=== PATIENT | male | born 1985 | race Caucasian/White ===

== ENCOUNTER 2019-08-04 10:39 | Outpatient (CLI) | payer OTHER ==
[2019-08-04] MEDS ORDERED: GADOBUTROL 7.5 MMOL/7.5 ML VIAL IVP ONE (11:32)
[2019-08-04] MEDS ORDERED: GADOBUTROL 7.5 MMOL/7.5 ML VIAL ONE (11:33)
--- NOTE | 2019-08-04 12:57 | MRI Report ---
Reason: OTHER SPECIFIED JOINT DISORDERS, RT WRIST Procedure Date: 08/04/2019 Accession Number: [id number] / [id number] Procedure: MRI - Wrist RT W/WO CPT Code: FULL RESULT: EXAM: RIGHT WRIST MRI WITHOUT AND WITH CONTRAST EXAM DATE: 08/04/2019 11:54 AM. CLINICAL HISTORY: Other specified joint disorders, right wrist. Cyst. COMPARISON: None. TECHNIQUE: Multiplanar, multisequence T1-weighted and fluid-sensitive sequences of the wrist before and after administration of intravenous contrast. IV contrast: . Other: None. FINDINGS: Bones: No fracture or bone lesion. Benign carpal cyst in the trapezoid. Minimal bone marrow edema and enhancement at the ulnar aspect of the lunate proximally. Cartilage: The articular cartilage is unremarkable. Ill-defined fluid sensitive isointense to hyperintense signal and distortion in the substance of the dorsal fibers ulnar insertion triangular fibrocartilage complex. Ligaments: Distortion and likely full-thickness tear membranous portion and volar band scapholunate ligament. Mild thickening and subtle distortion at the dorsal band. Minimal thickening and edema at the dorsal and volar band lunotriquetral ligament. Diffuse edema and distortion with attenuated appearance at the volar long radiolunate ligament. Tendons: Minimal thickening at the extensor carpi radialis longus tendon. Likely normal variant separation of some of the fibers at the ulnar aspect of the tendon distally extending to the insertion. 0.3 x 0.3 x 0.7 cm, AP by transverse by longitudinal focus of fluid at the radial aspect extensor carpi radialis brevis tendon at the level of the distal radius articular surface. Mild thickening and subtle fluid sensitive isointense intrasubstance signal at the extensor carpi ulnaris tendon distally. Musculature: No edema or fatty atrophy. Other: The contents of the carpal tunnel, including the median nerve, are unremarkable. Guyons canal is unremarkable. Minimal joint fluid at the distal radial ulnar and radiocarpal joints. The subcutaneous tissues are unremarkable. No abscess or cellulitis. IMPRESSION: 1. Trace tenosynovitis versus 0.7 cm ganglion at the extensor carpi radialis brevis tendon. 2. Minimal tendinopathy extensor carpi radialis longus tendon with likely normal variant separation of the fibers distally. 3. Mild extensor carpi ulnaris tendinopathy with possible subtle intrasubstance tear. 4. Likely full-thickness tear membranous portion and volar band scapholunate ligament. Mild sprain dorsal band. 5. High-grade partial-thickness tear volar long radiolunate ligament. 6. Mild sprain dorsal and volar bands lunotriquetral ligament. 7. Subtle bone marrow edema at the proximal lunate, suggestive of ulnar abutment. 8. Intrasubstance degeneration and likely partial thickness intrasubstance tear ulnar insertion triangular fibrocartilage complex. RADIA
== END 2019-08-04 10:40 | disposition home or self-care (01) ==
LOC: DI 10:39
PROVIDERS: ATTEND Orthopaedic Surgery
DX: S63.591A Other specified sprain of right wrist, initial encounter (principal); M24.131 Other articular cartilage disorders, right wrist; M67.931 Unspecified disorder of synovium and tendon, right forearm; R60.0 Localized edema
CPT/HCPCS: 73223; A9585

== ENCOUNTER 2019-10-01 12:27 | Day surgery (SDC) | payer OTHER ==
[2019-10-01] MEDS ORDERED: PROPOFOL 200 MG/20 ML VIAL IVP ONE (12:28)
[2019-10-01] MEDS ORDERED: KETOROLAC 30 MG/ML VIAL IVP ONE (12:28)
[2019-10-01] MEDS ORDERED: MIDAZOLAM 2 MG/2 ML VIAL IVP ONE (12:28)
[2019-10-01] MEDS ORDERED: DEXAMETHASONE 4 MG/ML VIAL IVP ONE (12:28)
[2019-10-01] MEDS ORDERED: LACTATED RINGERS 1,000 ML IV ONE ×2 (12:37→14:30)
[2019-10-01] MEDS ORDERED: CEFAZOLIN SODIUM IN 0.9 % NACL 2 GM/100 ML BAG IV ONE (12:46)
[2019-10-01] MEDS ORDERED: BUPIVACAINE 0.5% PF 30 ML VIAL ONE (13:12)
--- NOTE | 2019-10-01 13:18 | ANESTHESIA ---
Pre-Anesthesia VS, & Labs - Diagnosis R dorsal wrist ganglion cyst - Procedure R dorsal wrist ganglion cyst excision Vital Signs: Temp Pulse Resp BP Pulse Ox 37.1 C 71 15 112/76 97 10/01/19 12:38 10/01/19 12:38 10/01/19 12:38 10/01/19 12:38 10/01/19 12:38 Height 5 ft 9 in Weight (kg) 77.56 kg - NPO >8 hours Home Medications and Allergies Home Medications: Ambulatory Orders No Known Home Medications 09/23/19 No Known Home Medications 09/23/19 Allergies/Adverse Reactions: Allergies Allergy/AdvReac Type Severity Reaction Status Date / Time No Known Drug Allergies Allergy Verified 09/23/19 12:00 Anes History & Medical History - Anesthetic History Anesthesia Complications: reports: No previous complications Family history of Anesthesia Complications: Denies Family history of Malignant Hyperthermia: Denies - Medical History Cardiovascular: reports: None Gastrointestinal: reports: None Urinary: reports: None Smoking Status: Never smoker (uses chewing tobacco) - Surgical History Orthopedic: Other Exam General: Alert, Oriented x3, Cooperative Dental: WNL Mouth Openin Fingerbreadth Neck Mobility: Normal Mallampati classification: I Thyromental Distance: 4-6 cm Respiratory: Lungs clear, Normal breath sounds Plan Anesthesia Type: General Consent for Procedure(s) Verified and Reviewed: Yes Code Status: Attempt Resuscitation ASA classification: 2-Mild systemic disease Is this case an emergency?: No
[2019-10-01] MEDS ORDERED: BUPIVACAINE 0.5% PF 30 ML VIAL INFIL ONE ×2 (13:38)
[2019-10-01] MEDS ORDERED: oxyCODONE 5 MG TABLET PO PRN (15:07)
[2019-10-01] MEDS ORDERED: ONDANSETRON 4 MG/2 ML VIAL IVP PRN (15:07)
[2019-10-01] MEDS ORDERED: fentaNYL 100 MCG/2 ML VIAL ONE (15:10)
--- NOTE | 2019-10-01 15:22 | OPERATIVE REPORT ---
Operative Report - General Procedure Date: 10/01/19 - Procedure Note Estimated Blood Loss (mL): 1 - Other Other Information/Narrative: Date of Procedure: 01 October 2019 Planned Procedure: Right dorsal wrist ganglion excision Pre-op diagnosis: Right dorsal wrist ganglion Procedure performed: Right dorsal wrist mass excision, extensor tenosynovectomy Post-op diagnosis: Right extensor tendon tenosynovitis, retinacular thickening Primary Surgeon: LEODAN CAPPS Secondary Surgeon: JAMES JALLOH Anesthesia: LMA EBL: Less than 1 ml Tourniquet: 49 minutes, right arm at 250mmHg. Specimen(s) Information: None Complication(s): None Condition: Stable to recovery Indications for Surgery: The patient is a 34-year-old right hand dominant male with a several year history of a right dorsal wrist mass. The mass is starting to become more symptomatic, causing pain with wrist extension and loading. Exam demonstrated a dorsal radial mass near the intersection of the EPL and wrist extensor tendons. The mass was mobile, firm, and accentuated with thumb extension. Xrays were normal. MRI demonstrated T2 hyperintensity near the ECRB tendon. The patient was counseled on treatment options to include continued nonoperative treatment in the form of activity modification, observation versus surgical excision. Risks of surgery were discussed to include bleeding, infection, postoperative wrist stiffness, mass recurrence, damage to nerves, vessels, tendons, ligaments, bone and cartilage and anesthesia complications to include medication side effects and allergic reactions and even . After a long discussion, he wished to proceed. Findings: Moderate synovitis of the ECRL and ECRB tendons, thickening of the extensor retinaculum between the first and second dorsal compartments Descriptions of Procedure: The patient was met in the Preoperative Holding Area, at which time preoperative paperwork was confirmed. The right dorsal wrist was signed. The patient was then brought to Main Operating Room, placed supine on the Operating Room table. General anesthesia was induced. The operative extremity was then prepped and draped over a hand table in the normal sterile fashion after a well-padded tourniquet was placed on the proximal arm. A surgical timeout was conducted to confirm the correct patient, correct extremity and correct procedure and to confirm that antibiotics had been administered within 30 minutes of incision time. The operative extremity was then exsanguinated with an Esmarch bandage and tourniquet inflated to 250mmHg. A 2cm transverse incision was made over the mass with a #15 blade through skin and subcutaneous tissue. Dissection was further carried out with tenotomy scissors. The extensor retinaculum was identified, and longitudinally incised over the palpated mass. The second dorsal com partment was entered, with moderate tenosynovitis observed, there was what appeared to be a physiologic split and ECRL tendon, without degeneration. A tenosynovectomy was performed. The EPL, distal to Doris's tubercle was also released and inspected, and a limited tenosynovectomy was performed. The EPL, ECRL and ECRB tendons were then inspected along their length to ensure no intrasubstance ganglion cyst were present. There was a thickening in the flexor retinaculum between the first and second dorsal compartments, consistent with the area of palpable mass, this thickened area was sharply debrided. No discrete fluid-filled cyst was observed. Digital palpation and manipulation of the thumb and wrist was used to confirm that there were no further occult masses through a normal range of motion. The wound was then copiously irrigated. The deep dermal layer was closed with 3-0 Vicryl in buried interrupted fashion. The skin was then closed with 4-0 monocryl in running subcuticular fashion. Mastisol and Steri-Strips were applied. 10 mL of half percent plain Marcaine were injected around the incision. The wound was dressed with plain 4x4 gauze, followed by webril, and a volar wrist splint followed by a compressive Philip bandage. The tourniquet was let down. The patient was then awakened from general anesthesia without complication, brought to the Post Anesthesia Care for further recovery. Postoperative Plan: 1. The patient will be discharged from the Same Day Surgery Unit when discharge criteria are met. 2. The patient will remain in a splint until follow-up, this will be removed in clinic to facilitate early range of motion. 3. Expect return to full duty in 4-6 weeks, and he was counseled that he may have wrist stiffness up to 8 weeks postoperatively. 4. Discharge precautions were provided in both verbal and written form to the patient
[2019-10-01 15:40] VITALS: BP 109/70
[2019-10-01] MEDS ORDERED: oxyCODONE 5 MG TABLET ONE (15:42)
== END 2019-10-01 12:28 | disposition home or self-care (01) ==
LOC: SDS 12:27
PROVIDERS: ATTEND Orthopaedic Surgery
PROC: 0LB50ZZ Excision of Right Lower Arm and Wrist Tendon, Open Approach (ICD-10-PCS; principal; 2019-10-01 14:15)
DX: M67.431 Ganglion, right wrist (principal); M65.841 Other synovitis and tenosynovitis, right hand; F17.220 Nicotine dependence, chewing tobacco, uncomplicated